=== PATIENT | male | born 1990 | race African-American/Black ===

== ENCOUNTER 2019-07-26 20:45 | Inpatient (IN) | payer MEDICAID ==
[~2019-07-26] VITALS: Ht 185.4 cm; Wt 55.1 kg
[2019-07-26 21:33] LABS: BASOPHIL % 0.5 % (0-2); PLATELET COUNT 273 x10^3mcL (130-400); RED CELL DISTRIBUTION WIDTH 14.5 % (11.5-14.5)
[2019-07-26 21:44] LABS: CALCIUM 9.6 mg/dL (8.5-10.1); CARBON DIOXIDE 23.9 mmol/L (21-32); CHLORIDE SERUM 102 mmol/L (98-107); CREATININE SERUM 1.2 mg/dL (0.7-1.3); GFR1 > 60 mL/min; GLUCOSE SERUM 96 mg/dL (74-106); POTASSIUM SERUM 3.6 mmol/L (3.5-5.1); SODIUM SERUM 139 mmol/L (136-145)
[2019-07-26 21:49] LABS: ALBUMIN 4.3 g/dL (3.4-5.0); ALKALINE PHOSPHATASE 73 U/L (46-116); ALT/SGPT 32 U/L (16-63); AST/SGOT 38 U/L (15-37); BILIRUBIN TOTAL 0.8 mg/dL (0.20-1.00); TOTAL PROTEIN, SERUM 8.2 g/dL (6.4-8.2)
[2019-07-27 01:50] LABS: microscopic required? NO
[2019-07-27 02:25] LABS: urine erythrocyte NEGATIVE (NEGATIVE)
[2019-07-27 02:34] LABS: AMPHETAMINE QUAL UR POSITIVE (See below)
[2019-07-27 21:41] LABS: FREE T4 1.02 ng/dL (0.76-1.46); FREE THYROXINE INDEX 3.2 ug/dL (1.4-4.5)
[2019-07-27 21:56] VITALS: BP 120/83
[2019-07-27 22:02] LABS: T3 TOTAL 1.45 ng/mL
[2019-07-27 22:05] VITALS: Ht 185.4 cm; Wt 55.1 kg
[2019-07-28 05:45] VITALS: BP 122/74
[2019-07-28 06:21] LABS: BASOPHIL % 0.1 % (0-2); PLATELET COUNT 260 x10^3mcL (130-400); RED CELL DISTRIBUTION WIDTH 14.4 % (11.5-14.5)
[2019-07-28 06:35] LABS: CALCIUM 9.6 mg/dL (8.5-10.1); CARBON DIOXIDE 27.4 mmol/L (21-32); CHLORIDE SERUM 103 mmol/L (98-107); CREATININE SERUM 0.9 mg/dL (0.7-1.3); GFR1 > 60 mL/min; GLUCOSE SERUM 84 mg/dL (74-106); MAGNESIUM 2.2 mg/dL (1.8-2.4); PHOSPHOROUS 2.9 mg/dL (2.5-4.9); POTASSIUM SERUM 4.2 mmol/L (3.5-5.1); SODIUM SERUM 141 mmol/L (136-145)
[2019-07-28 09:09] VITALS: BP 122/79
[2019-07-28 17:42] VITALS: BP 141/90
[2019-07-28] MEDS ORDERED: SEROQUEL300 MG PO (17:44)
[2019-07-28] MEDS ORDERED: DIVALPROEX SOD500 M3 PO (17:46)
[2019-07-28 21:36] VITALS: BP 128/68
[2019-07-29 05:47] VITALS: BP 125/84
[2019-07-29 06:36] LABS: BASOPHIL % 0.6 % (0-2); PLATELET COUNT 251 x10^3mcL (130-400); RED CELL DISTRIBUTION WIDTH 14.3 % (11.5-14.5)
[2019-07-29 06:39] LABS: CALCIUM 8.9 mg/dL (8.5-10.1); CARBON DIOXIDE 27.5 mmol/L (21-32); CHLORIDE SERUM 106 mmol/L (98-107); CREATININE SERUM 0.9 mg/dL (0.7-1.3); GFR1 > 60 mL/min; GLUCOSE SERUM 79 mg/dL (74-106); MAGNESIUM 2.1 mg/dL (1.8-2.4); PHOSPHOROUS 3.9 mg/dL (2.5-4.9); POTASSIUM SERUM 4.1 mmol/L (3.5-5.1); SODIUM SERUM 143 mmol/L (136-145)
[2019-07-29 10:01] VITALS: BP 120/79
[2019-07-29 18:17] VITALS: BP 131/73
[2019-07-29 20:59] VITALS: BP 118/75
[2019-07-30 05:42] VITALS: BP 116/77
[2019-07-30 08:20] VITALS: BP 128/85
[2019-07-30 17:16] VITALS: BP 138/74
[2019-07-31 20:00] VITALS: BP 160/84
[2019-08-01 06:03] VITALS: BP 131/78
[2019-08-01 08:52] VITALS: BP 143/83
[2019-08-01 13:38] VITALS: BP 140/75
[2019-08-01 17:14] VITALS: BP 147/73
[2019-08-01 19:30] VITALS: BP 110/70
[2019-08-02 05:52] VITALS: BP 121/63
[2019-08-02 06:35] LABS: CALCIUM 9.3 mg/dL (8.5-10.1); CARBON DIOXIDE 29.4 mmol/L (21-32); CHLORIDE SERUM 102 mmol/L (98-107); CREATININE SERUM 1.1 mg/dL (0.7-1.3); GFR1 > 60 mL/min; GLUCOSE SERUM 84 mg/dL (74-106); POTASSIUM SERUM 3.9 mmol/L (3.5-5.1); SODIUM SERUM 140 mmol/L (136-145)
[2019-08-02 06:44] LABS: BASOPHIL % 0.1 % (0-2); PLATELET COUNT 269 x10^3mcL (130-400)
[2019-08-02 09:28] VITALS: BP 121/97
[2019-08-02 17:52] VITALS: BP 122/76
[2019-08-03 05:30] VITALS: BP 130/65
[2019-08-03 14:11] VITALS: BP 130/65
[2019-08-03 21:13] VITALS: BP 133/87
[2019-08-04 06:10] VITALS: BP 139/79
[2019-08-04 09:06] VITALS: BP 120/85
== END 2019-08-04 11:28 | disposition left against medical advice (07) | DRG 812 ==
LOC: ED 20:45 → EDBD 07-27 21:06 → MU 07-27 21:06
PROVIDERS: Emergency Medicine; Psychiatry & Neurology Psychiatry; ADMIT Internal Medicine
DX: T43.621A Poisoning by amphetamines, accidental (unintentional), initial encounter (principal); G92 Toxic encephalopathy; R45.851 Suicidal ideations; F25.0 Schizoaffective disorder, bipolar type; F15.122 Other stimulant abuse with intoxication with perceptual disturbance; Z91.14 Patient's other noncompliance with medication regimen; Z59.0 Homelessness; Z68.1 Body mass index [BMI] 19.9 or less, adult; Y92.89 Other specified places as the place of occurrence of the external cause
CPT/HCPCS: 82962; 84439; G0378; G0480; J0515; J1200; J1630; J2060; J3486; J7030; Q0092

== ENCOUNTER 2019-08-04 13:09 | Emergency (ER) | payer MEDICAID ==
[~2019-08-04] VITALS: Ht 167.6 cm; Wt 65.8 kg
[~2019-08-04 13:09] MED LIST: DIVALPROEX SOD500 M3 PO; SEROQUEL300 MG PO
[2019-08-04 14:06] VITALS: BP 140/75; Ht 167.6 cm; Wt 65.8 kg
--- NOTE | 2019-08-04 15:07 | NUR ---
[facility] contacted [facility] s/w Sarah, patient has not been accepted to their facility.
== END 2019-08-04 14:24 | disposition left against medical advice (07) ==
LOC: ED 13:09
DX: F29 Unspecified psychosis not due to a substance or known physiological condition (principal)